=== PATIENT | female | born 1965 | race Caucasian/White ===

== ENCOUNTER 2019-06-03 10:58 | Day surgery (SDC) | payer MEDICARE, MEDICAID ==
[~2019-06-03] VITALS: Ht 162.6 cm; Wt 99.3 kg
[~2019-06-03 10:58] MED LIST: DALF10TA3 PO; FING1CAP PO; GABA300C10 PO; MODA200T50 PO; OXYB5TAB61 PO
[2019-06-03] MEDS ORDERED: IODIXANOL 320MG/ML 100ML BTL IV ONE (12:54)
[2019-06-03] MEDS ORDERED: LIDOCAINE 2%HCL (LOCAL ANESTH.) INJ 20ML MDV ONE (12:54)
[2019-06-03] MEDS ORDERED: HEPARIN SODIUM (PORCINE) 5000 UNITS/ML 1ML VIAL ONE (12:57)
[2019-06-03] MEDS ORDERED: VERAPAMIL 2.5MG/ML INJ 2ML VIAL IV ONE (12:57)
[2019-06-03] MEDS ORDERED: fentaNYL CITRATE 100 MCG/2 ML VL ONE (12:58)
[2019-06-03] MEDS ORDERED: MIDAZOLAM HCL 1MG/1ML-2 ML VIAL ONE (12:58)
[2019-06-03] MEDS ORDERED: SODIUM CHL 0.9% 50 ML ONE (12:58)
[2019-06-03] MEDS ORDERED: hydrALAZINE HCL 20 MG/ML VL ONE ×2 (13:27→14:49)
[2019-06-03] MEDS: hydrALAZINE HCL 20 MG/ML VL IV ONE (14:53)
[2019-06-03] MEDS ORDERED: ONDANSETRON HCL 4 MG/2 ML VIAL ONE (16:00)
[2019-06-03] MEDS ORDERED: ONDANSETRON HCL 4 MG/2 ML VIAL IV ONE ×2 (16:00→16:15)
== END 2019-06-03 16:37 | disposition home or self-care (01) ==
LOC: CATH 10:58
PROVIDERS: ATTEND Internal Medicine
DX: I25.10 Atherosclerotic heart disease of native coronary artery without angina pectoris (principal); I10 Essential (primary) hypertension; G35 Multiple sclerosis; Z79.899 Other long term (current) drug therapy; Z82.49 Family history of ischemic heart disease and other diseases of the circulatory system
CPT/HCPCS: 93005; 93454; C1769; C1894; J0360; J1644; J2250; J2405; J3010; Q9967; 99152